=== PATIENT | female | born 1955 | race African-American/Black ===

== ENCOUNTER → 2017-02-24 | Outpatient (CLI) | payer MEDICARE, BC ==
--- NOTE | 2017-02-24 13:47 | KCIC ---
MR CERVICAL SPINE HISTORY:Reason For StudyReason: RADICULOPATHY CERVICAL REGION / Spl. Instructions: Prev sent to PACS. Pain in right thumb / History: Chronic neck pain w/epidurals in the past. Bilat shoulder pain. Technique: Sagittal T2, sagittal STIR, sagittal T1, and axial gradient echo imaging was obtained of the cervical spine. FINDINGS: Alignment and curvature are within normal limits. Vertebral body heights are maintained. Bone marrow signal is normal. The cord is normal in caliber with no signal abnormality identified. Visualized soft tissues of the neck are within normal limits. At C2-3 there is no spinal stenosis. At C3-4 there is a disc osteophyte complex which abuts the ventral surface of the cord but does not cause significant mass effect upon it. Mild bilateral facet arthropathy is noted. At C4-C5 there is a disc osteophyte complex which abuts the ventral surface of the cord but does not cause mass effect upon it. At C5-6 there is a right eccentric disc osteophyte complex causing moderate right foraminal narrowing. There is also a posterior disc osteophyte complex minimally impressing upon the ventral surface of the cord. No cord signal abnormality. Correlate for right C6 radiculopathy symptoms. At C6-C7 there is no spinal stenosis. Impression: - Degenerative disc disease greatest at C5-C6 there is moderate right foraminal stenosis. Correlate for right C6 radiculopathy symptoms. Other less severe degenerative changes per level as above. Electronically signed by: Eben Mariee (Feb 24, 2017 13:46:25)
== END | disposition home or self-care (01) ==
LOC: KCIC MRI 12:12
PROVIDERS: ATTEND Anesthesiology Pain Medicine
DX: M47.22 Other spondylosis with radiculopathy, cervical region (principal); M48.02 Spinal stenosis, cervical region
CPT/HCPCS: 72141

== ENCOUNTER → 2017-03-27 | Outpatient (CLI) | payer MEDICARE, BC ==
--- NOTE | 2017-03-27 15:08 | KCIC ---
PROCEDURE: Right lower extremity venous Doppler ultrasound. HISTORY Right lower extremity swelling and pain. COMPARISON None. TECHNIQUE Real-time grayscale, color flow, and Doppler spectral waveform analysis of the deep veins of the lower extremity/ies performed. FINDINGS All visualized vein segments demonstrate normal compressibility and augmentation and color flow. Color flow seen within calf veins. Subcutaneous edema right lateral ankle. There is an elongated but non pathologically enlarged lymph node in the right groin. IMPRESSION No evidence of right lower extremity deep vein thrombosis. Electronically signed by: Valeriano Pink MD (March 27, 2017 15:06:15)
== END | disposition home or self-care (01) ==
LOC: KCIC US 13:09
PROVIDERS: ATTEND Internal Medicine
DX: M79.604 Pain in right leg (principal); M79.89 Other specified soft tissue disorders
CPT/HCPCS: 93971

== ENCOUNTER → 2017-05-04 | Outpatient (CLI) | payer MEDICARE, BC ==
--- NOTE | 2017-05-04 13:35 | KCIC ---
Bilateral digital screening mammograms: Reason for examination: Routine screening. Comparison is made to previous studies dated 04/28/2016 and 03/10/2015. The skin and nipples show no abnormalities. No abnormal lymph nodes are seen. The breast parenchyma is predominantly fatty. (Breast density: Category A.) There are no dominant masses, suspicious calcifications or architectural distortions. A few benign calcifications are again seen. Impression: No evidence of malignancy. Recommend routine screening. BI-RADS Category 2: Benign. "Our facility is accredited by the [employer] Mammography [employer]." This patient's information has been entered into a reminder system for the patient to be notified with the results of her examination and a target date for the next mammogram. Electronically signed by: Melania Wetzel MD (05/04/2017 1:31 PM)
== END | disposition home or self-care (01) ==
LOC: KCIC MAMMO 12:32
PROVIDERS: ATTEND Internal Medicine
DX: Z12.31 Encounter for screening mammogram for malignant neoplasm of breast (principal)
CPT/HCPCS: G0202; 77067

== ENCOUNTER → 2017-09-22 | Outpatient (CLI) | payer MEDICARE, BC ==
[~2017-09-22] MED LIST: CLON2TAB2 PO; DESO15CR11 TP; DIVA500T9 PO; ETOD500T PO; FLUT30CR5 TP; FURO20TA3 PO; GABA-585 PO; GADOBUTROL 10 MMOL/10 ML VIAL IV ONE; LINA290C PO; NYST100054 PO; OMEP20CA9 PO; POLY17PO29 PO; [UNRECOGNIZED DRUG - CODE] PO
--- NOTE | 2017-09-22 12:35 | KCIC ---
MR of the right knee with and without contrast Indication: Pain after steroid injection. Generalized pain and stiffness. Technique: Pre and postcontrast imaging is obtained as per request. FINDINGS: Small joint effusion. Mild synovial enhancement. No drainable fluid collection or abscess. No aggressive bone destruction, marrow edema or acute osteomyelitis. Severe primary osteoarthritis. Severe cartilage loss at all joint compartments, greatest at the patella and lateral compartment. Exuberant osteophyte formation. Intracondylar notch stenosis due to osteophytes. Study was not protocoled for evaluation of intra-articular structures. There does appear to be medial and lateral meniscal tears. Anterior cruciate ligament is not clearly visualized, most likely due to chronic rupture, or possibly severe impingement by intracondylar osteophytes. There is chronic bone fragmentation and hypertrophy at the tibial tubercle, as can be seen with old patellar tendinosis or old Julio Cesar-Schlatter's disease. There are enthesophytes at the upper and lower patella. IMPRESSION: 1. Small joint effusion with synovitis, of uncertain sterility. 2. No drainable abscess or acute osteomyelitis. 3. Severe primary osteoarthritis. 4. Medial and lateral meniscal tears. 5. Nonvisualized anterior cruciate ligament. This likely is due to a chronic rupture. This could also be due to severe impingement by intercondylar notch osteophytes. Electronically signed by: Akash Ritter MD (09/22/2017 12:31 PM) [id number]
== END | disposition home or self-care (01) ==
LOC: KCIC MRI 10:43
PROVIDERS: ATTEND Internal Medicine
DX: S83.281A Other tear of lateral meniscus, current injury, right knee, initial encounter (principal); S83.241A Other tear of medial meniscus, current injury, right knee, initial encounter; M17.11 Unilateral primary osteoarthritis, right knee; M65.161 Other infective (teno)synovitis, right knee; X58.XXXA Exposure to other specified factors, initial encounter; Y93.89 Activity, other specified; Y92.89 Other specified places as the place of occurrence of the external cause; Y99.8 Other external cause status
CPT/HCPCS: 73723; A9585

== ENCOUNTER → 2018-06-01 | Outpatient (CLI) | payer MEDICARE, BC | END | disposition home or self-care (01) | LOC: KCIC MAMMO 12:55 | DX: Z12.31 Encounter for screening mammogram for malignant neoplasm of breast (principal) | CPT/HCPCS: 77063; 77067 ==

== ENCOUNTER → 2019-06-21 | Outpatient (CLI) | payer MEDICARE, BC ==
[~2019-06-21] MED LIST changes: -CLON2TAB2 PO; +CLON2TAB9 PO; +DIVA-53 PO; -DIVA500T9 PO; -GADOBUTROL 10 MMOL/10 ML VIAL IV ONE; -LINA290C PO; +LINZESS290 MCG PO; +OMEP20CA10 PO; -OMEP20CA9 PO
--- NOTE | 2019-06-21 14:59 | KCIC ---
Bilateral digital screening mammograms with 3-D tomosynthesis: Reason for examination: Routine screening. Comparison is made to previous studies dated 06/01/2018 and 05/04/2017. Bilateral mammograms in CC and oblique projections were obtained with 2-D imaging and 3-D tomosynthesis imaging on a [employer] Inspiration unit and reviewed on the workstation. Interpretation was made with the benefit of CAD. The skin and nipples show no abnormalities. No abnormal axillary lymph nodes are seen. The breast parenchyma is predominantly fatty. (Breast density: Category A.) There are no dominant masses, suspicious calcifications or architectural distortion. A few scattered benign calcifications are again seen but are stable. Impression: No evidence of malignancy. Recommend routine screening. BI-RAD Category 2: Benign. "Our facility is accredited by the [employer] Mammography Program." This patient's information has been entered into a reminder system for the patient to be notified with the results of her examination and a target date for the next mammogram. Electronically signed by: Melania Wetzel MD (06/21/2019 2:56 PM) [id number]
== END | disposition home or self-care (01) ==
LOC: KCIC MAMMO 11:10
PROVIDERS: ATTEND Internal Medicine
DX: Z12.31 Encounter for screening mammogram for malignant neoplasm of breast (principal); N64.89 Other specified disorders of breast
CPT/HCPCS: 77063; 77067

== ENCOUNTER → 2019-09-24 | Outpatient (CLI) | payer MEDICARE, BC ==
[~2019-09-24] MED LIST changes: +IOHEXOL 240 MG/ML 50ML VIAL. PO ONE
--- NOTE | 2019-09-24 15:34 | KCIC ---
Examination: CT ABD PEL W/ORAL CONTRST ONLY History: Flank pain, hematuria Comparison/Correlation: None Findings: Axial images of the abdomen and pelvis were obtained following oral contrast. Sagittal and coronal reformatted images were provided. A small hiatal hernia is present. Visualized lung bases are clear. Liver, spleen, pancreas, adrenal glands, and left kidney are unremarkable. Right renal superior pole cyst measuring 6.9 cm x 6.2 cm present. No radiopaque collecting system calculi or evidence of hydronephrosis. Small umbilical hernia contains omental fat. Upper abdominal midline ventral hernia defect is very small in size with omental fat within it. Cholecystectomy noted. Moderate quantity of stool in the colon noted. Appendix is normal. No ascites or pelvic free fluid. Bladder is unremarkable. It is mostly decompressed however. There is a transverse unremarkable. No enlarged abdominal or pelvic lymph nodes. No ascites or pelvic free fluid. Few nonenlarged lymph nodes medial to the cecum are present. Mild L4-5 disc space narrowing and vacuum phenomenon is present. Facet joint degenerative changes of the lumbar Bilateral sacroiliac joint sclerosis with vacuum phenomenon is noted. Impression: Upper abdominal midline ventral hernia and umbilical hernia are small in size. Nonenlarged lymph nodes medial to cecum. Findings raise question of adenitis. No radiopaque collecting system calculi or evidence of collecting system obstruction. IVP CT urogram with contrast exam is recommended for more definitive assessment of mass lesion. PQRS Compliance Statement: One or more of the following individualized dose reduction techniques were utilized for this examination: 1. Automated exposure control 2. Adjustment of the mA and/or kV according to patient size 3. Use of iterative reconstruction technique Electronically signed by: Derek Ramon MD (09/24/2019 3:31 PM) [facility]
== END | disposition home or self-care (01) ==
LOC: KCIC CT 08:54
PROVIDERS: ATTEND Internal Medicine
DX: K43.9 Ventral hernia without obstruction or gangrene (principal); K42.9 Umbilical hernia without obstruction or gangrene; R59.0 Localized enlarged lymph nodes; R31.9 Hematuria, unspecified; Z90.49 Acquired absence of other specified parts of digestive tract
CPT/HCPCS: 74176; Q9966

== ENCOUNTER → 2019-10-31 | Outpatient (CLI) | payer MEDICARE, BC ==
[~2019-10-31] MED LIST changes: -IOHEXOL 240 MG/ML 50ML VIAL. PO ONE; +OMEP-229 PO; -OMEP20CA10 PO
--- NOTE | 2019-10-31 12:13 | KCIC ---
EXAM: Pelvic sonogram. HISTORY: Postmenopausal bleeding. TECHNIQUE: Transabdominal and transvaginal sonographic imaging of the pelvis was performed. COMPARISON: None. FINDINGS: The uterus is normal in size. The endometrial stripe is thin, measuring 1 mm. The ovaries are obscured. There is no pelvic free fluid. IMPRESSION: 1. Thin endometrium, consistent with the postmenopausal status of the patient. 2. Obscured ovaries. Electronically signed by: Rebekah Darby MD (10/31/2019 12:10 PM) [place] [id number]
== END | disposition home or self-care (01) ==
LOC: KCIC US 10:46
PROVIDERS: ATTEND Obstetrics & Gynecology
DX: N95.0 Postmenopausal bleeding (principal)
CPT/HCPCS: 76830; 76856

== ENCOUNTER → 2020-06-24 | Outpatient (CLI) | payer MEDICARE, BC ==
[~2020-06-24] MED LIST changes: -OMEP-229 PO; +OMEP20CA16 PO
--- NOTE | 2020-06-24 17:58 | KCIC ---
Bilateral digital screening mammograms with 3-D tomosynthesis: Reason for examination: Routine screening. Comparison is made to previous studies dated back to 04/22/2016. Bilateral mammograms in CC and oblique projections were obtained with 2-D imaging and 3-D tomosynthesis imaging on a [employer] Inspiration unit and reviewed on the workstation. Interpretation was made with the benefit of CAD. The skin and nipples show no abnormalities. No abnormal axillary lymph nodes are seen. The breast parenchyma is predominantly fatty. (Breast density: Category A.) There are no dominant masses, suspicious calcifications or architectural distortion. Impression: No evidence of malignancy. Recommend routine screening. BI-RAD Category 1: Negative. "Our facility is accredited by the [employer] Mammography Program." This patient's information has been entered into a reminder system for the patient to be notified with the results of her examination and a target date for the next mammogram. Electronically signed by: Melania Wetzel MD (06/24/2020 5:55 PM) [id number]
== END | disposition home or self-care (01) ==
LOC: KCIC MAMMO 11:05
PROVIDERS: ATTEND Internal Medicine
DX: Z12.31 Encounter for screening mammogram for malignant neoplasm of breast (principal)
CPT/HCPCS: 77063; 77067

== ENCOUNTER → 2021-06-16 | Outpatient (CLI) | payer MEDICARE, BC ==
[~2021-06-16] MED LIST changes: -ETOD500T PO; +ETOD500T4 PO
--- NOTE | 2021-06-16 11:28 | KCIC ---
EXAM: DUAL ENERGY X-RAY ABSORPTIOMETRY (DEXA). HISTORY: Postmenopausal screening. FINDINGS: The lowest measured T-score is 1.5 in the left hip, based on a bone mineral density of 1.12 9 g/cm^2. Refer to the worksheets for full detail. No comparison examinations are available. IMPRESSION: 1. Normal. Bone mineral density yields a T-score of -1.0 or greater. Fracture risk is low. 2. FRAX report: Not calculated. METHODOLOGY: Dual energy x-ray absorptiometry was performed to measure bone mineral density. The foll owing analysis is based on the 2019 Official Positions of the International Society for Clinical Dens itometry: Measurements of the hips and the average of L1-L4 are preferred. When the spine and/or hip cannot be feasibly measured or interpreted, or in the setting of hyperparathyroidism, distal radial bone minera l density may be measured. The lumbar spine T-score is based on the average bone mineral density of L1-L4. In the setting of art ifact or anatomic abnormality, some lumbar levels may be excluded, and the remaining levels used for calculation. A single lumbar level is not used for diagnosis, and if only a single level is available for assessment, another anatomic site will be used to assign a diagnosis. The hip T-score is based on the bone mineral density measurement of the femoral neck or total proxima l femur of either side, whichever is lowest. Bilateral mean values are not used for diagnosis. The forearm T-score is derived from 33% of the distal radius of the nondominant forearm. Electronically signed by: Rebekah Darby MD (06/16/2021 11:26 AM) [id number]
== END ==
LOC: KCIC DEXA 10:51
PROVIDERS: ATTEND Internal Medicine
DX: Z13.89 Encounter for screening for other disorder (principal); Z98.890 Other specified postprocedural states
CPT/HCPCS: 77080

== ENCOUNTER → 2021-07-12 | Outpatient (CLI) | payer MEDICARE, BC ==
--- NOTE | 2021-07-12 16:26 | KCIC ---
Bilateral digital screening mammograms with 3-D tomosynthesis: Reason for examination: Routine screening. Comparison is made to previous studies dated 06/24/2020 and 06/21/2019. Bilateral mammograms in CC and oblique projections were obtained with 2-D imaging and 3-D tomosynthes is imaging on a [employer] Inspiration unit and reviewed on the workstation. Interpretation was made with the benefit of CAD. The skin and nipples show no abnormalities. No abnormal axillary lymph nodes are seen. The breast par enchyma is predominantly fatty. (Breast density: Category A.) There are no dominant masses, suspiciou s calcifications or architectural distortion. Impression: No evidence of malignancy. Recommend routine screening. BI-RAD Category 1: Negative. "Our facility is accredited by the [employer] Mammography Program." This patient's information has been entered into a reminder system for the patient to be notified wit h the results of her examination and a target date for the next mammogram. Electronically signed by: Anabel Schmitt MD (07/12/2021 4:23 PM) [id number]
== END ==
LOC: KCIC MAMMO 12:18
PROVIDERS: ATTEND Internal Medicine
DX: Z12.31 Encounter for screening mammogram for malignant neoplasm of breast (principal)
CPT/HCPCS: 77063; 77067